=== PATIENT | female | born 1970 | race African-American/Black ===

== ENCOUNTER 2016-08-26 07:22 | Emergency (ER) ==
--- NOTE | 2016-08-26 08:18 | Diag Imaging Result Document ---
PROCEDURE NAME: CHEST-2 VIEWS - 08/26/2016 FRONTAL AND LATERAL CHEST, TWO VIEWS: COMPARISON: 07/17/2016. FINDINGS: The lungs are well expanded. The heart is not enlarged. The vessels are not distended. There are no infiltrates. No pleural effusions. A granuloma is found in the mid right lung. IMPRESSION: No pneumonia.
[2016-08-26] MEDS ORDERED: DUONEB (A & A) INH ONE (09:20)
[2016-08-26] MEDS ORDERED: DECADRON IM ONE (09:20)
--- NOTE | 2016-08-26 09:56 | PROVIDER DOCUMENTATION ---
HPI-Respiratory General - General Source: patient - History of Present Illness-Resp Quality of Pain: reports: aching Severity in ED: reports: moderate Onset/Duration: reports: other (2mo) Timing: reports: still present Cough Quality/Degree: reports: productive cough Current Respiratory Medication Therapy: Initiated see nurses note Similar Symptoms Previously?: No Recently seen or treated by another doctor?: No <Neil Maxwell - Last Filed: 08/26/16 09:57> <Sol Dumont - Last Filed: 08/26/16 10:18> - General Chief Complaint: Cough Stated Complaint: SOB Time Seen by Provider: 08/26/16 07:29 Allergies/Adverse Reactions: Patient Allergies Allergy/AdvReac Type Severity Reaction Status Date / Time No Known Allergies Allergy Verified 08/26/16 10:10 Home Medications: Home Medication List Medication Instructions Recorded Confirmed Last Taken Type Albuterol Sulfate [Albuterol 8.5 gm IH Q4-6H PRN PRN #2 07/17/16 08/26/16 Unknown Rx Sulfate Hfa] [email or web address] Lisinopril/Hydrochlorothiazide 1 each PO DAILY #30 tablet 07/17/16 08/26/16 Unknown Rx [Lisinopril-Hctz 20-25 mg Tab] Amoxicillin/Pot Clavulanate 875 mg PO Q12HR #14 tablet 08/26/16 Unknown Rx [Augmentin] Chlorpheniramine/Dextromethorp 1 each PO Q6H PRN PRN #30 tablet 08/26/16 Unknown Rx [Coricidin Hbp Cough & Cold Tab] Ipratropium/Albuterol Sulfate 3 ml IH Q6H PRN #30 ampul.neb 08/26/16 Unknown Rx [Iprat-Albut 0.5-3(2.5) mg/3 ml] Metoprolol [Lopressor] 25 mg PO DAILY #30 tablet 08/26/16 Unknown Rx Prednisone 20 mg PO DAILY #15 tablet 08/26/16 Unknown Rx - History of Present Illness-Resp Nature of Presenting Problem: Reports to er with cc of cough x 2 month productive with yellow phelgm. Also complains of sorethroat and states upon coughing back hurts. Denies asthma,copd, sob. Pt is a smoker. (Neil Maxwell) Review of Systems - Adult - REVIEW OF SYSTEMS - ADULT Constitutional: denies: chills, fever, fatique Eyes: reports: no symptoms reported Ears, Nose, Mouth & Throat: reports: throat pain. denies: hearing loss, sinus problem Cardiovascular: denies: chest pain, irregular heart rate, orthopnea, syncope Respiratory: reports: cough. denies: pleurisy, shortness of breath, wheezing Gastrointestinal: reports: no symptoms reported Genitourinary: reports: no symptoms reported Musculoskeletal: reports: no symptoms reported Integumentary: reports: no symptoms reported Neurological: reports: no symptoms reported Psychiatric: reports: no symptoms reported Endocrine: reports: no symptoms reported Hematologic/Lymphatic: reports: no symptoms reported Allergic/Immunologic: reports: no symptoms reported All Other Systems: Reviewed and Negative <Neil Maxwell - Last Filed: 08/26/16 09:57> Past History - Adult - PAST MEDICAL HISTORY-ADULT Review of Records: reports: Nursing Assessment Review, Medications Reviewed Major Childhood Illnesses: reports: denies history - PRIOR SURGERIES/PROCEDURES Surgical/Procedure History: reports: BTL - IMMUNIZATION STATUS Childhood Immunizations: See Nurse Assessment Flu Vaccine: See Nurse Assessment - SOCIAL HISTORY Smoking: greater than 1 pack/day Provider spent 3-5 mins advising pt. on dangers of tobacco.: Discussed manners to quit use, and f/u contacts for add'l counseling. Substance Use: none/never <Neil Maxwell - Last Filed: 08/26/16 09:57> Physical Exam-General - PHYSICAL EXAM-ADULT Initial Vital Signs Reviewed: Yes - CONSTITUTIONAL General Appearance: appears well, alert, no apparent distress - EYES Eyes: PERRL/EOMI - HEAD, EARS, NOSE, MOUTH & THROAT HENMT: moist mucous membranes, TMs normal, pharyngeal erythema - NECK Neck: non-tender, full range of motion, supple, normal inspection - RESPIRATORY Respiratory: chest non-tender, normal breath sounds, no pleuratic chest pain, no respiratory distress, no accessory muscle use, wheezing (mild wheezing all lung lou). negative: crackles, rales, rhonchi - CARDIOVASCULAR Cardiovascular: tachycardia - GASTROINTESTINAL (ABDOMEN) Abdominal Exam: normal bowel sounds, non tender, soft, no organomegaly, no pulsatile mass - MUSCULOSKELETAL Back Exam: normal inspection, no CVA tenderness, no vertebral tenderness Extremity: normal range of motion, non-tender, normal gait - SKIN Integumentary: normal color, normal turgor, warm/dry - NEUROLOGIC Neurologic: yarn sorter II-XII nml as tested, grossly normal - PSYCHIATRIC Psych/Mental Status: normal mood/affect, normal thought content, normal thought process, oriented x 3 <Neil Maxwell - Last Filed: 08/26/16 09:57> Progress - XRAY 1 XRAY: Bilateral XRAY Study: Chest Impression: Normal XRAY Interpretation: nad <Neil Maxwell - Last Filed: 08/26/16 09:57> <Sol Dumont - Last Filed: 08/26/16 10:18> - PLAN OF CARE/RESULTS Progress/Plan/Lab Results: Orders Category Date Time Status CHEST-2 VIEWS [RAD] Stat Exams 08/26/16 07:28 Completed Albuterol 2.5MG/Ipratrop 0.5MG [Duoneb (A & A)] Med 08/26/16 09:20 Discontinued 9 ml INH NOW ONE Dexamethasone [Decadron] Med 08/26/16 09:20 Discontinued 10 mg IM NOW ONE Aerosol Treatments Routine Oth 08/26/16 09:20 Completed Aerosol Treatments Stat Oth 08/26/16 09:20 Completed Vital Signs - 24 hr 08/26/16 08/26/16 07:25 09:40 Temperature 98.0 F Pulse Rate 110 H 72 Respiratory 18 14 Rate Blood Pressure 159/106 O2 Sat by Pulse 94 L 92 L Oximetry (Neil Maxwell) Orders Category Date Time Status CHEST-2 VIEWS [RAD] Stat Exams 08/26/16 07:28 Completed Albuterol 2.5MG/Ipratrop 0.5MG [Duoneb (A & A)] Med 08/26/16 09:20 Discontinued 9 ml INH NOW ONE Dexamethasone [Decadron] Med 08/26/16 09:20 Discontinued 10 mg IM NOW ONE Aerosol Treatments Routine Oth 08/26/16 09:20 Completed Aerosol Treatments Stat Oth 08/26/16 09:20 Completed Discussed results and medication use with pt, including return precautions. ( Sol Dumont) Departure <Neil Maxwell - Last Filed: 08/26/16 09:57> - Departure Time of Disposition Order: 10:08 Certified Medical Emergency: Emergent <Sol Dumont - Last Filed: 08/26/16 10:18> - Departure DIAGNOSIS: Bronchitis, Wheezing Hypertension Qualifiers: Hypertension type: essential hypertension Qualified Code(s): I10 - Essential ( primary) hypertension Disposition: HOME 01 Condition: Stable Additional Instructions: Follow up with specialist for further evaluation of wheezing. take medications as directed. ED Follow Up Instructions: You have been treated by a care provider in the Emergency Department. These instructions are being provided to you so you can have an understanding of how to care for yourself upon discharge. Upon discharge from the Emergency Department, you are responsible for making arrangements for follow-up care by a physician of your choice. Take all prescribed medications as directed. Return to the Emergency Department immediately for any new or worsening symptoms. You may call the Physician Referral phone number at [phone] to obtain a list of Physicians who are taking new patients. Prescriptions: Amoxicillin/Pot Clavulanate [Augmentin] 875 mg PO Q12HR #14 tablet Chlorpheniramine/Dextromethorp [Coricidin Hbp Cough & Cold Tab] 1 each PO Q6H PRN PRN #30 tablet PRN Reason: Cough Ipratropium/Albuterol Sulfate [Iprat-Albut 0.5-3(2.5) mg/3 ml] 3 ml IH Q6H PRN # 30 ampul.neb PRN Reason: Shortness Of Breath Metoprolol [Lopressor] 25 mg PO DAILY #30 tablet Prednisone 20 mg PO DAILY #15 tablet Referrals: None,PCP [Primary Care Provider] - Tian Hawk MD [STAFF PHYSICIAN] - Instructions: Chronic Obstructive Pulmonary Disease Exacerbation, [id number] , Acute Bronchitis Attestation - Scribe Verification/Attestation Scribe:: Neil Maxwell Acting as Scribe for:: Sol Dumont Scribe documention review:: This chart was documented by a scribe and accurately reflects the service the provider performed and the decisions made by the provider. <Neil Maxwell - Last Filed: 08/26/16 09:57> Physician Attestation
[2016-08-26 10:11] VITALS: BP 154/100
== END 2016-08-26 10:41 | disposition home or self-care (01) ==
LOC: ED 07:22
DX: J40 Bronchitis, not specified as acute or chronic (principal); R06.2 Wheezing; I10 Essential (primary) hypertension; R05 Cough; R06.02 Shortness of breath; R09.3 Abnormal sputum; J02.9 Acute pharyngitis, unspecified; M54.9 Dorsalgia, unspecified; F17.210 Nicotine dependence, cigarettes, uncomplicated; Z79.899 Other long term (current) drug therapy; Z71.6 Tobacco abuse counseling
CPT/HCPCS: 71020; 94640